=== PATIENT | male | born 2000 | race Native Hawaiian/Other Pacific Islander ===

== ENCOUNTER 2023-02-13 21:32 | Emergency (ER) | payer OTHER, SELFPAY ==
[2023-02-13] MEDS: lidocaine HCL 2 % MULTIDOSE 20 ML VIAL 4 ML INJECTION (21:50)
[2023-02-13 21:52] VITALS: BP 154/78; PULSE 94; RESP 18; TEMP 36.7; O2SAT 99; BMI 33.9
[2023-02-13 22:05] VITALS: BP 132/74; PULSE 84; RESP 18; TEMP 36.7; O2SAT 99
--- NOTE | 2023-02-13 22:07 | ED.WOUNDLAC ---
HPI - Wound/Laceration General Chief Complaint: Laceration/Wound Stated Complaint: Laceration on L index finger Time Seen by Provider: 02/13/23 21:35 History of Present Illness HPI narrative: Patient is a 22-year-old gentleman who is due for tetanus shot and works at [employer]. He suffered a 3 cm laceration cm on the posterior aspect of the 2nd digit of the left hand tonight at work. Patient has full range of motion of the hand pain is minimal. He has minimal bleeding. He is otherwise uninjured. Last tetanus shot was in 2012. Related Data Home Medications Medication Instructions Recorded Confirmed metformin 750 mg tablet,extended 750 mg PO DAILY 02/13/23 02/13/23 release 24 hr Allergies Allergy/AdvReac Type Severity Reaction Status Date / Time No Known Drug Allergies Allergy Verified 02/13/23 21:56 Review of Systems Status of ROS: Reports: 6 or more systems reviewed and unremarkable except as noted in History and below [facility] Medical History Diabetes mellitus, type 2 ?E11.9 - Type 2 diabetes mellitus without complications (ICD-10) Surgical History No significant past surgical history Social History Smoking Status: Never smoker Do you use any of these nicotine containing products: Vaping Products Second hand tobacco smoke exposure: No How often do you have a drink containing alcohol: never How often do you have six or more drinks on one occasion: Never AUDIT-C Alcohol total score: 0 Non-prescribed substance use: denies use Exam Narrative: Exam Narrative: EXAM GENERAL: Patient appears comfortable and well. EYES: No scleral icterus. LYMPH: No supraclavicular or cervical lymphadenopathy. SKIN: Laceration as described above EXT: No dependent lower extremity pedal edema. ABD: Soft, non tender, non distended. PSYCH: Good eye contact, speech is not pressured. Const: Vital Signs, click to edit/add: Vital Signs - 24 hr 02/13/23 21:52 02/13/23 22:05 Temperature 98.0 F 98.0 F Pulse Rate [Right Pulse Oximeter] 94 84 Respiratory Rate 18 18 Blood Pressure [Ri ght Upper Arm] 154/78 H 132/74 Pulse Oximetry 99 99 Oxygen Delivery Me thod Room Air Room Air Course Course Hospital Course: Wound was aggressively irrigated after which I did provide local anesthesia with 1% lidocaine without epinephrine. I then closed the defect with 4 running 3-0 Ethilon sutures. The wound was dressed and he was instructed on wound care. Vital Signs Vital signs: Initial Vital Signs Temperature 98.0 F 02/13/23 21:52 Temperature Source Temporal Artery Scan 02/13/23 21:52 Pulse Rate 94 02/13/23 21:52 Respiratory Rate 18 02/13/23 21:52 Blood Pressure 154/78 H 02/13/23 21:52 Blood Pressure Mean 103 02/13/23 21:52 Blood Pressure Position Sitting 02/13/23 21:52 Pulse Oximetry 99 02/13/23 21:52 Oxygen Delivery Method Room Air 02/13/23 21:52 Vital Signs Temperature 98.0 F 02/13/23 21:52 Pulse Rate 94 02/13/23 21:52 Respiratory Rate 18 02/13/23 21:52 Blood Pressure 154/78 H 02/13/23 21:52 Pulse Oximetry 99 02/13/23 21:52 Oxygen Delivery Method Room Air 02/13/23 21:52 Temperature 98.0 F 02/13/23 22:05 Pulse Rate 84 02/13/23 22:05 Respiratory Rate 18 02/13/23 22:05 Blood Pressure 132/74 02/13/23 22:05 Pulse Oximetry 99 02/13/23 22:05 Oxygen Delivery Method Room Air 02/13/23 22:05 MDM - Wound/Laceration MDM Narrative Medical decision making narrative: Patient is a 22-year-old gentleman comes in today with laceration on the left hand index finger. The wound was cleaned tetanus shot was updated. The wound was anesthetized with lidocaine and closed with running 3-0 Ethilon suture. Wound was dressed and he was instructed on follow-up in 9 days for suture removal. Wound care was described. Differential Diagnosis Differential diagnosis: Likely laceration, abrasion and avulsion of skin Discharge Plan Discharge Clinical Impression: Laceration Condition: Stable Instructions: Laceration (ED) Additional Instructions: Wound care as discussed Tylenol Motrin as needed Daily dressing changes Suture removal 1 week from Saturday. Activity Level: No Restrictions Discharge Diet: Regular Prescriptions: No Action metformin 750 mg tablet extended release 24 hr 750 mg PO DAILY Follow Up/Referrals: Ron Murphy MD [Primary Care Provider] - Stand Alone Forms: [employer] Info Instructions
[2023-02-13] MEDS: TETANUS/DIPHTH/PERTUSSIS 0.5 ML SYRINGE IM (22:20)
[2023-02-13 22:24] VITALS: BP 132/74; PULSE 84; RESP 18; TEMP 36.7
--- NOTE | 2023-02-13 22:28 | ED.NURSE ---
laceration cleaned up. bacitracin and telfa applied. wrapped with tube gauze. finger splint applied. pt. tolerated well.
== END 2023-02-13 22:38 | disposition home or self-care (01) ==
LOC: ED 22:19
PROVIDERS: Emergency Provider Internal Medicine; PCP Surgery
DX: S61.211A Laceration without foreign body of left index finger without damage to nail, initial encounter (principal); Y99.0 Civilian activity done for income or pay
CPT/HCPCS: 12001; 90471; 90715; 99283